=== PATIENT | male | born 1975 | race Caucasian/White ===

== ENCOUNTER 2016-12-22 20:07 | Emergency (ER) | payer MEDICAID ==
[~2016-12-22] VITALS: Ht 165.1 cm; Wt 83.0 kg
[2016-12-22] MEDS ORDERED: BACITRACIN ZINC OINT UDPKT TOP ONE (21:00)
[2016-12-22] MEDS ORDERED: IBUPROFEN 600MG TABLET PO ONE (21:00)
[2016-12-22 21:06] VITALS: BP 154/94
== END 2016-12-22 23:00 | disposition home or self-care (01) ==
LOC: ER 22:54
DX: S01.451A Open bite of right cheek and temporomandibular area, initial encounter (principal); W54.0XXA Bitten by dog, initial encounter; Y93.89 Activity, other specified; Y99.8 Other external cause status; Y92.89 Other specified places as the place of occurrence of the external cause; Z98.890 Other specified postprocedural states
CPT/HCPCS: 99283

== ENCOUNTER 2025-08-02 15:17 | Emergency (ER) | payer SELFPAY ==
[~2025-08-02] VITALS: Ht 165.1 cm; Wt 90.0 kg
[2025-08-02 15:25] VITALS: O2SAT 98
[2025-08-02] MEDS ORDERED: DEXAMETHASONE 4MG TABLET PO ONE (15:30)
[2025-08-02] MEDS ORDERED: IBUPROFEN 600MG TABLET PO ONE (15:30)
[2025-08-02] MEDS: IBUPROFEN 600MG TABLET PO NR (19:00)
[2025-08-02] MEDS: DEXAMETHASONE 4MG TABLET PO NR (19:00)
[2025-08-02] MEDS: LIDOCAINE 5% PATCH TOP SCH (19:01)
[2025-08-02] MEDS ORDERED: LIDO-53 TP (19:01)
[2025-08-02 19:46] VITALS: BP 127/80; PULSE 70; RESP 18; TEMP 36.6; O2SAT 96
[2025-08-02 20:10] LABS: BASOPHILS % 0.9 % (0.0-2.0); EOSINOPHILS % 1.9 % (0.0-5.0); HEMATOCRIT. 39.9 % (42.0-52.0); HEMOGLOBIN. 13.9 g/dL (14.0-18.0); LYMPHOCYTES % 25.5 % (20.0-50.0); MEAN PLATELET VOLUME 7.2 fl (7.4-10.4); MONOCYTES % 10.5 % (2.0-8.0); NEUTROPHILS % 61.2 % (40.0-76.0); PLATELET 241 x1000/uL (130-400); RED BLOOD CELL COUNT 4.51 mill/uL (4.7-6.1); RED CELL DISTRIBUTION WIDTH 12.9 % (11.6-14.6)
[2025-08-02 20:29] LABS: CREATININE 0.7 mg/dL (0.6-1.3); UREA NITROGEN BLOOD 18 mg/dL (9-23)
== END 2025-08-02 19:55 | disposition home or self-care (01) ==
LOC: ER 15:17 → CMPBEDREQ 08-03 07:43
DX: M51.360 Other intervertebral disc degeneration, lumbar region with discogenic back pain only (principal); N20.0 Calculus of kidney
CPT/HCPCS: 80048; 80320; 85025; 36415; 72131; 74176; 99284; J8540; G0480